=== PATIENT | female | born 1995 | race Hispanic/Latino ===

== ENCOUNTER 2018-06-08 14:56 | Inpatient (IN) | payer BC ==
[2018-06-08] MEDS ORDERED: PROMETHAZINE 25 MG/ML VIAL IM PRN ×2 (15:02)
[2018-06-08] MEDS ORDERED: Ringers Lactate 1,000 ML IV PRN (15:02)
[2018-06-08] MEDS ORDERED: CARBOPROST TROME 250 MCG/ML IM PRN (15:02)
[2018-06-08] MEDS ORDERED: BUTORPHANOL 1 MG/ML INJ IV PRN (15:02)
[2018-06-08] MEDS ORDERED: MEPERIDINE HCL 25 MG/0.5 ML IV PRN (15:02)
[2018-06-08] MEDS ORDERED: METHYLERGONOVINE 0.2MG/ML AMP IM PRN (15:02)
[2018-06-08 15:16] LABS: RPR Titer ND
[2018-06-08 15:18] VITALS: BMI 39.6
[2018-06-08 15:18] LABS: Absolute Lymphocytes (CBC) 1.3 K/uL (0.7-4.9); Absolute Monocytes 0.9 K/uL (0.1-1.3); Absolute Neutrophil 16.2 K/uL (1.8-8.0); Basophils % 0.2 % (0-1.3); Eosinophils % 0.4 % (0-4.4); Hematocrit 34.5 % (36.0-45.0); Lymphocytes % 7.2 % (15.3-44.8); MCH 26.8 pg (27.0-35.0); MCV 82.4 fL (80-100); MPV 11.7 fL (7.6-11.3); RBC Red Blood Cell Count 4.19 M/uL (3.86-4.86)
[2018-06-08] MEDS ORDERED: PENICILLIN G POT 5 MU/100 ML BAG IV ONE (15:54)
[2018-06-08] MEDS ORDERED: OXYTOCIN/LR 20 UNIT/1,000 ML BAG IV SCH (16:00)
[2018-06-08] MEDS ORDERED: Ringers Lactate 1,000 ML IV SCH (16:00)
[2018-06-08] MEDS ORDERED: PENICILLIN G POT 5 MU/100 ML VIAL IV SCH (16:00)
[2018-06-08 16:19] LABS: Blood Morphology Comment NOT SEEN (NOT SEEN); Platelet Estimate ADEQ; Platelets, Giant FEW; Urine White Blood Cell Casts OK
[2018-06-08] MEDS ORDERED: PENICILLIN 2.5 MU in NA CHLORIDE 0.9% 100 ML IV SCH (20:00)
[2018-06-08 21:14] LABS: RPR (Rapid Plasma Reagin) NON-REACT (NON-REACT)
[2018-06-09] MEDS ORDERED: LIDOCAINE 2% INJ, 20 mL 20 ML ONE (05:22)
[2018-06-09] MEDS ORDERED: MIDAZOLAM HCL 2 MG/2 ML INJ ONE (05:28)
[2018-06-09] MEDS ORDERED: MEPERIDINE HCL 25 MG/0.5 ML ONE (06:21)
[2018-06-09] MEDS ORDERED: Oxycodone HCl/Acetaminophen 1 TAB TAB PO PRN ×2 (06:45)
[2018-06-09] MEDS ORDERED: DIPHENHYDRAMINE 25 MG TAB/CAP PO PRN (06:45)
[2018-06-09] MEDS ORDERED: IBUPROFEN 200 MG TAB PO PRN (06:45)
[2018-06-09] MEDS ORDERED: ACETAMINOPHEN 500 MG TAB PO PRN (06:45)
[2018-06-09] MEDS ORDERED: DOCUSATE NA/SENNA CONC 1 TAB PO PRN (06:45)
[2018-06-09] MEDS ORDERED: BISACODYL 10 MG RECTAL SUPP RECT PRN (06:45)
[2018-06-09] MEDS ORDERED: OXYTOCIN/LR 20 UNIT/1,000 ML BAG IV SCH (07:00)
--- NOTE | 2018-06-09 10:56 | PREOPHP ---
Date of Admission: 06/08/2018 History And Physical: A 22-year-old primigravida, 37 weeks 5 days, came in with spontaneous rupture of membranes she says for 3 days. Very definite spontaneous rupture of clear fluid noted on admissio n. The patient is Rh positive, immune to Rubella. Negative beta strep screen, but because she had r uptured membranes for possibly long 3 days, was started on penicillin prophylaxis and received 3 dose s during the labor, Stadol IV. Otherwise, the history and physical was normal and unchanged from pre vious visits. Anticipated vaginal delivery. JOSH/DIEGO Voice ID: [id number]
--- NOTE | 2018-06-09 10:56 | DN ---
Surgeon: Vinny Peoples MD A 22-year-old primigravida, 37 weeks 5 days, came in with possible rupture of membranes for 3 days. Fluid clear. The patient was started on penicillin prophylaxis, received 4 doses; Stadol IV 2 times during the labor. Second stage of approximately 0.5 hour spontaneous vaginal delivery of a 7 pound 5 ounce male . Nuchal cord x2. Meconium passage just at the time of delivery. Apgars 8 and 10 . Midline first and second-degree laceration, which had started as a very small less than 1 inch epi siotomy. Bilateral vaginal wall lacerations also involving the labia minora. All sutured with multi ple sutures of 2-0 chromic local infiltration. Procedure: The patient was given a total of 50 mg of demerol IV following delivery of the baby and c lamping of the cord. Methergine 0.2 mg was given as the uterus was slightly hypotonic. Estimated bl ood loss during the procedure was 450 cc. Final Diagnoses: Term intrauterine 37 weeks 5 days, possible prolonged rupture of membrane s. Nuchal cord x2. Mild uterine hypotonus. JOSH/JOSEYL Voice ID: [id number] Report ID: [id number]
--- NOTE | 2018-06-10 08:03 | DS ---
Hospital Course: A 22-year-old, primigravida, 37 weeks 5 days, came in active labor with rupture of membranes, possibly for as long as 3 days but that is doubtful. As the fluid was clear, there were n o signs of amnionitis during the entire labor. Nonetheless, she was put on penicillin prophylaxis. Received 4 doses during her labor. Stadol IV x2 during the labor. Second stage of about 30 minutes to 45 minutes. Spontaneous vaginal delivery of a 7 pound 5 ounce male , Apgars 8 and 10. Thre e lacerations; all first degree, involving both labia minora and midline, all repaired with 2-0 chrom ic, local infiltration. Nuchal cord x2 noted on the baby. Mild uterine hypotonus, 0.2 mg of Metherg ine IM. Estimated blood loss, 450 cc. afebrile, ambulating, and voiding. Hugo is norm al. She has had her Tdap immunization. Will be dismissed later this morning to report back to [facility] in 6 weeks for followup, to report any temperature elevation of 100 degrees or greater, severe p ain, heavy bleeding, or any other type of abnormalities. Dismissed with tramadol for analgesia, alth ough she knows this goes to the breast milk and she may choose to use Motrin instead. Final Diagnoses: Intrauterine gestation, 37 weeks 5 days, possible prolonged rupture of membranes. Nuchal cord x2. Mild uterine hypotonus. Penicillin prophylaxis. JOSH/DIEGO Voice ID: [id number] Report ID: [id number]
[2018-06-10 08:14] VITALS: BP 111/55; TEMP 97.9
[2018-06-12 04:17] LABS: HBsAG Nonreactive (Nonreactive)
== END 2018-06-10 09:50 | disposition home or self-care (01) | DRG 775 ==
LOC: 2ND-WC 14:56
PROVIDERS: ADMIT Specialist; ATTEND Specialist
PROC: 10E0XZZ Delivery of Products of Conception, External Approach (ICD-10-PCS; principal; 2018-06-09)
PROC: 0KQM0ZZ Repair Perineum Muscle, Open Approach (ICD-10-PCS; 2018-06-09)
DX: O42.12 Full-term premature rupture of membranes, onset of labor more than 24 hours following rupture (principal); O70.1 Second degree perineal laceration during delivery; O77.0 Labor and delivery complicated by meconium in amniotic fluid; O69.81X0 Labor and delivery complicated by cord around neck, without compression, not applicable or unspecified; O62.2 Other uterine inertia; Z3A.37 37 weeks gestation of pregnancy; Z37.0 Single live birth
CPT/HCPCS: 36415; 85025; 86592; 86901; 87340; 88307; J0595; J2175; J2210; J2250; J2550; J2590

== ENCOUNTER 2022-09-10 16:58 | Emergency (ER) | payer BC, SELFPAY ==
--- NOTE | 2022-09-10 17:56 | RAD REPORT ---
EXAM DESCRIPTION: RAD - Ankle Right 3 View - 09/10/2022 5:31 pm CLINICAL HISTORY: Right ankle pain FINDINGS: No fracture or dislocation is seen.
--- NOTE | 2022-09-10 17:57 | RAD REPORT ---
EXAM DESCRIPTION: RAD - Foot Right 3 View - 09/10/2022 5:31 pm CLINICAL HISTORY: Right foot pain status post injury FINDINGS: No fracture or dislocation is seen Soft tissue swelling
--- NOTE | 2022-09-10 18:04 | EDPHYS ---
Physician Documentation [facility] Name: Jacqui Jeronimo Age: 26 yrs Sex: Female : 1995 Arrival Date: 09/10/2022 Time: 16:59 Bed 10 Private MD: ED Physician Jersey Abrams HPI: 09/10 17:06 This 26 yrs old Female presents to ER via Unassigned with complaints of Ankle rn Injury. 17:06 The patient presents with decreased range of motion, an injury, pain. The complaints rn affect the right ankle. Onset: The symptoms/episode began/occurred 3 day(s) ago. Associated signs and symptoms: Pertinent positives: swelling, Pertinent negatives: calf tenderness, weakness. Modifying factors: The symptoms are alleviated by elevation of extremity, sitting, the symptoms are aggravated by weight bearing. Severity of symptoms: At their worst the symptoms were moderate, in the emergency department the symptoms are unchanged. The patient has not experienced similar symptoms in the past. Reports rolled right ankle/foot at wedding 3 days ago. Was been walking on it since then and was able to work today. + swelling and pain so came to get xray.. 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 - Social history:: Smoking status: Patient denies any tobacco usage or history of. - Family history:: not pertinent. - Hospitalizations: : No recent hospitalization is reported. ROS: 17:06 Constitutional: Negative for fever, chills, and weight loss, MS/Extremity: + injury and rn pain to right ankle/foot Skin: Negative for injury, rash, and discoloration, Neuro: Negative for weakness, numbness, tingling Exam: 17:06 Constitutional: This is a well developed, well nourished patient who is awake, alert, rn and in no acute distress. Ambulatory to room with slight limp. MS/ Extremity: Pulses equal, no cyanosis. Neurovascular intact. Full, normal range of motion. + mild swelling with tenderness inferior to right lateral malleolus and mid foot. No open wounds. Vital Signs: 17:00 BP 125 / 72; Pulse 78; Resp 16; Pulse Ox 100% on R/A; kr3 17:06 Pulse 85; Resp 16; Temp 98.4; Pulse Ox 100% ; Weight 104.33 kg; Height 5 ft. 2 in. vg1 (157.48 cm); Pain 7/10; 18:16 BP 127 / 70; Pulse 79; Resp 16; Pulse Ox 100% on R/A; kr3 17:06 Body Mass Index 42.07 (104.33 kg, 157.48 cm) vg1 MDM: 17:01 Patient medically screened. rn 18:03 Differential diagnosis: fracture, sprain. Data reviewed: vital signs, nurses notes, rn radiologic studies, plain films, and as a result, I will discharge patient. Counseling: I had a detailed discussion with the patient and/or guardian regarding: the historical points, exam findings, and any diagnostic results supporting the discharge/admit diagnosis, radiology results, the need for outpatient follow up, to return to the emergency department if symptoms worsen or persist or if there are any questions or concerns that arise at home. Special discussion: I discussed with the patient/guardian in detail that at this point there is no indication for admission to the hospital. It is understood, however, that if the symptoms persist or worsen the patient needs to return immediately for re-evaluation. 09/10 17:06 Order name: Ankle Right 3 View XRAY; Complete Time: 18:03 vg1 09/10 17:06 Order name: Foot Right 3 View XRAY; Complete Time: 18:03 vg1 Administered Medications: No medications were administered Disposition Summary: 09/10/22 18:04 Discharge Ordered Location: Home rn Problem: new rn Symptoms: have improved rn Condition: Stable rn Diagnosis - Sprain of unspecified ligament of right ankle, initial encounter rn - Other sprain of right foot rn Followup: rn - With: Private Physician - When: As needed - Reason: Recheck today's complaints, Re-evaluation by your physician Discharge Instructions: - Discharge Summary Sheet rn - Ankle Sprain rn - Foot Sprain rn Forms: - Medication Reconciliation Form rn - Thank You Letter rn - Antibiotic review rn - Prescription Opioid Use rn Signatures: Dispatcher [employer] Jersey Arias MD MD rn Garcia, Victoria, RN RN 1
--- NOTE | 2022-09-10 18:04 | ER ---
Nurse's Notes [facility] Name: Jacqui Jeronimo Age: 26 yrs Sex: Female : 1995 Arrival Date: 09/10/2022 Time: 16:59 Bed 10 Private MD: Diagnosis: Sprain of unspecified ligament of right ankle, initial encounter;Other sprain of right foot Presentation: 09/10 17:04 Chief complaint: Patient states: Right ankle pain since Saturday, stated was dancing and vg1 rolled ankle. 17:06 Coronavirus screen: Vaccine status: Patient reports receiving the 1st dose of the Covid vg1 vaccine. Client denies travel out of the [place] in the last 14 days. Ebola Screen: Patient negative for fever greater than or equal to 101.5 degrees Fahrenheit, and additional compatible Ebola Virus Disease symptoms Patient denies exposure to infectious person. Initial Sepsis Screen: Does the patient meet any 2 criteria? No. Patient's initial sepsis screen is negative. Does the patient have a suspected source of infection? No. Patient's initial sepsis screen is negative. Risk Assessment: Do you want to hurt yourself or someone else? Patient reports no desire to harm self or others. Onset of symptoms was September 07, 2022. 17:06 Method Of Arrival: Ambulatory vg1 17:06 Acuity: MELANY 4 vg1 Triage Assessment: 17:17 General: Appears in no apparent distress. uncomfortable, Behavior is calm, cooperative. vg1 Pain: Complains of pain in Right foot, right ankle. Musculoskeletal: Swelling present in right foot. 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 - Social history:: Smoking status: Patient denies any tobacco usage or history of. - Family history:: not pertinent. - Hospitalizations: : No recent hospitalization is reported. Screenin:16 Abuse screen: Denies threats or abuse. Nutritional screening: No deficits noted. kr3 Tuberculosis screening: No symptoms or risk factors identified. Fall Risk None identified. Assessment: 17:00 Reassessment: No changes from previously documented assessment. Patient and/or family kr3 updated on plan of care and expected duration. Pain level reassessed. Patient is alert, oriented x 3, equal unlabored respirations, skin warm/dry/pink. 18:11 Reassessment: No changes from previously documented assessment. Patient and/or family kr3 updated on plan of care and expected duration. Pain level reassessed. Patient is alert, oriented x 3, equal unlabored respirations, skin warm/dry/pink. Vital Signs: 17:00 BP 125 / 72; Pulse 78; Resp 16; Pulse Ox 100% on R/A; kr3 17:06 Pulse 85; Resp 16; Temp 98.4; Pulse Ox 100% ; Weight 104.33 kg; Height 5 ft. 2 in. vg1 (157.48 cm); Pain 7/10; 18:16 BP 127 / 70; Pulse 79; Resp 16; Pulse Ox 100% on R/A; kr3 17:06 Body Mass Index 42.07 (104.33 kg, 157.48 cm) vg1 ED Course: 16:59 Patient arrived in ED. am2 17:01 Jersey Abrams MD is Attending Physician. rn 17:08 Triage completed. vg1 17:17 Arm band placed on. vg1 17:32 Ankle Right 3 View XRAY In Process Unspecified. EDMS 17:33 Foot Right 3 View XRAY In Process Unspecified. EDMS 17:47 Janis Oneill, RN is Primary Nurse. kr3 18:16 No provider procedures requiring assistance completed. Patient did not have IV access kr3 during this emergency room visit. 18:17 Bed in low position. Call light in reach. Side rails up X 1. kr3 Administered Medications: No medications were administered Medication: 18:17 VIS not applicable for this client. kr3 Outcome: 18:04 Discharge ordered by . rn 18:17 Discharged to home ambulatory. kr3 18:17 Condition: stable 18:17 Discharge instructions given to patient, Instructed on discharge instructions, follow up and referral plans. Demonstrated understanding of instructions, follow-up care. 18:31 Patient left the ED. kr3 Signatures: Dispatcher [employer] EDMS Jersey Abrams MD MD rn Moreno, Amanda am2 Maia Bruno RN RN vg1 Janis Oneill, ANABELLE RN kr3 Corrections: (The following items were deleted from the chart) 17:08 17:04 Chief complaint: Patient states: Right ankle pain since Saturday, stated was vg1 dancing and rolled ankle. vg1
[2022-09-10 18:58] VITALS: O2SAT 100
[2022-09-10 19:03] VITALS: TEMP 98.4
[2022-09-10 19:07] VITALS: BP 127/70
== END 2022-09-10 18:31 | disposition home or self-care (01) ==
LOC: ER 16:58
DX: S93.401A Sprain of unspecified ligament of right ankle, initial encounter (principal); S93.691A Other sprain of right foot, initial encounter
CPT/HCPCS: 99283